=== PATIENT | male | born 1995 | race Two or more races ===

== ENCOUNTER 2020-10-22 12:53 | Emergency (ER) | payer OTHER ==
[~2020-10-22] VITALS: Ht 190.5 cm; Wt 97.5 kg
[2020-10-22 13:21] VITALS: BP 165/104
== END 2020-10-22 13:44 | disposition home or self-care (01) ==
LOC: ER 12:53
DX: S46.912A Strain of unspecified muscle, fascia and tendon at shoulder and upper arm level, left arm, initial encounter (principal); F41.1 Generalized anxiety disorder; F17.210 Nicotine dependence, cigarettes, uncomplicated; X58.XXXA Exposure to other specified factors, initial encounter; Y93.89 Activity, other specified; Y92.89 Other specified places as the place of occurrence of the external cause; Y99.8 Other external cause status
CPT/HCPCS: 73030

== ENCOUNTER 2022-02-25 09:30 | Emergency (ER) | payer OTHER ==
[~2022-02-25] VITALS: Ht 190.5 cm; Wt 72.7 kg
[2022-02-25 09:40] VITALS: BP 152/92
[2022-02-25] MEDS ORDERED: LIDO2SOL23 MT (10:48)
[2022-02-25] MEDS ORDERED: AZIT500T66 PO (10:48)
== END 2022-02-25 11:09 | disposition home or self-care (01) ==
LOC: ER 09:30
DX: J03.90 Acute tonsillitis, unspecified (principal); F17.210 Nicotine dependence, cigarettes, uncomplicated; Z79.2 Long term (current) use of antibiotics; Z79.899 Other long term (current) drug therapy

== ENCOUNTER 2023-02-10 08:59 | Emergency (ER) | payer MEDICAID, OTHER ==
[~2023-02-10] VITALS: Ht 190.5 cm; Wt 75.0 kg
[~2023-02-10 08:59] MED LIST: AZIT500T66 PO; LIDO2SOL26 MT
[2023-02-10] MEDS ORDERED: SODIUM CHLORIDE 0.9% 1,000 ML IV ONE (09:15)
[2023-02-10] MEDS ORDERED: ONDANSETRON HCL 4 MG/2 ML VIAL IV ONE (09:30)
[2023-02-10 09:40] LABS: Basophils # (auto) 0 10 ^3/uL (0-0.2); Basophils % (auto) 0.5 % (0.0-2.0); Eosinophils # (auto) 0.1 10 ^3/uL (0-0.8); Eosinophils % (auto) 1.6 % (0.0-7.0); Hematocrit 42.9 % (41.0-53.0); Hemoglobin 13.8 g/dL (13.5-17.5); Lymphocytes # (auto) 1.8 10 ^3/uL (0.4-5.4); Lymphocytes % (auto) 30.4 % (10.0-50.0); Mean Corpuscular Hemoglobin 27.1 pg (28.0-32.0); Mean Corpuscular Hgb Conc. 32.1 g/dL (32.0-36.0); Mean Corpuscular Volume 84.5 fL (80.0-100.0); Monocytes # (auto) 0.3 10 ^3/uL (0-1.3); Monocytes % (auto) 5.8 % (0.0-12.0); Neutrophils # (auto) 3.7 10 ^3/uL (1.6-8.6); Neutrophils % (auto) 61.7 % (37.0-80.0); Nucleated Red Blood Cells % 0.2 %; Red Blood Cells 5.08 10^6/uL (4.5-5.90); Red Cell Distribution Width 14.6 % (11.8-14.3)
[2023-02-10 10:12] LABS: Albumin 3.5 g/dL (3.4-5.0); Calcium 8.4 mg/dL (8.5-10.1); Magnesium 1.9 mg/dL (1.6-2.6); Potassium 3.9 mmol/L (3.5-5.1)
[2023-02-10 10:15] LABS: BUN/Creatinine Ratio 15.2 (10.0-20.0); Bilirubin, Total 0.2 mg/dL (0.2-1.0); Total Protein 6.6 g/dL (6.4-8.2)
[2023-02-10 11:21] VITALS: BP 129/83; PULSE 91; RESP 18; TEMP 97.7; O2SAT 100
[2023-02-10 11:58] LABS: Alcohol, Urine < 3.0 mg/dL (0-10); Amphetamine Screen, Urine NEGATIVE (NEGATIVE); Barbiturate Scree,Urine NEGATIVE (NEGATIVE); Benzodiazephine Screen, Urine NEGATIVE (NEGATIVE); Cannabinoid Screen, Urine POSITIVE (NEGATIVE); Cocaine Screen, Urine NEGATIVE (NEGATIVE); Opiate Scree,Urine NEGATIVE (NEGATIVE)
[2023-02-10 12:10] LABS: Phencyclidine Screen, Urine NEGATIVE (NEGATIVE)
== END 2023-02-10 11:26 | disposition home or self-care (01) ==
LOC: ER 08:59 → EDUNIT# 08:59 → EDBD 08:59 → ER 11:24
DX: F15.90 Other stimulant use, unspecified, uncomplicated (principal); R55 Syncope and collapse; I10 Essential (primary) hypertension; Z79.899 Other long term (current) drug therapy
CPT/HCPCS: 36415; 70450; 74176; 80053; 80307; 83735; 85025; 93005; 96374; 99285; J2405; J7030